=== PATIENT | female | born 1995 | race Caucasian/White ===

== ENCOUNTER 2019-04-13 12:47 | Inpatient (IN) | payer OTHER ==
[2019-04-13] VITALS (11 sets, daily range): BP systolic 108–168; BP diastolic 57–105; PULSE 60–86; TEMP 97.6–97.9
[~2019-04-13] VITALS: Ht 160 cm; Wt 59.1 kg
--- NOTE | 2019-04-13 13:00 | NUR ---
Patient to LDR2 via stretcher from emergency room. Patient came in via EMS after an unplanned home delivery. Patient states that she just found out she was 2 weeks ago and has not had care. Placenta is already delivered. Dr. Mcclendon on unit and called to patient room. NS infusing to left AC, pitocin started at 333 ml/hr. Patient feets placed in stirrups for exam by Dr. Mcclendon. Patient screams in pain through fundal massage and exam by Dr. Mcclendon. 1313 1 mg of stadol given IV for pain. Pain remains uncontrollable through exam. Dr. Mcclendon makes decision to continue exam and start repair in the operating room under IV sedation. JACQUIE Mcleod notified. Patient to OR via bed at 1323.
--- NOTE | 2019-04-13 13:45 | NUR ---
Patient to LDR2 via bed from OR. Recovery VS started.
[2019-04-13 15:21] LABS: MEAN CELL VOLUME 92 fl (80.0-100.0); MEAN CORPUSCULAR HEMOGLOBIN 31 pg (27.0-31.0); MEAN CORPUSCULAR HGB CONC 34 g/dl (33.0-37.0); MEAN PLATELET VOLUME 10.7 fl (7.4-10.4); PLATELET COUNT 201 K/mm3 (130-400); RED BLOOD COUNT 3.51 M/mm3 (4.10-5.30)
[2019-04-13 15:31] LABS: HEMATOCRIT 32.3 % (37.0-47.0)
[2019-04-13 16:09] LABS: HIV 1/2 Antibodies Non-Reactive; HIV-1p24 Antigen Non-Reactive
--- NOTE | 2019-04-13 16:11 | NUR ---
tool worker filed CPS report #[id number] due to admitted use of marijuana, concern that baby may have been born with illegal substances. Awaiting urine drug screen for patient. EMS reports residence of patient was very poor and had a strong smell of marijuana.
--- NOTE | 2019-04-13 16:18 | NUR ---
mud jack nozzle worker met with patient and father of the baby (Dorian Smith). Patient states she found out 2 weeks ago, at [facility], that she was . Patient states she stopped smoking marijuana when she found out she was and that her smoking habits were not daily. Patient states she stays with father of the baby, however, her permanent address is in [place], with her parents. Patient states they are trying to figure out a way to tell her parents and Dorian's parents (that live in [place]) that they just had a baby. Worker will await urine drug tests, meet with Dr Marie in the morning to discuss further plans. Will await call from [facility]. Worker collaborated with nursing regarding the above information.
[2019-04-13 16:23] LABS: COLLECTION METHOD CATHETER
[2019-04-13 16:32] LABS: ALBUMIN 2.6 gm/dL (3.5-5.0); BILIRUBIN,TOTAL 0.7 mg/dL (0.0-1.0); CALCIUM 8.6 mg/dL (8.4-10.2); CREATININE, serum 0.41 (0.52-1.25); TOTAL PROTEIN 4.9 gm/dL (6.4-8.2)
[2019-04-13 16:33] LABS: POTASSIUM 3.9 mmol/L (3.4-5.0)
[2019-04-13 16:39] LABS: BAND 7 % (0-10); LYMPHOCYTE 6 % (20.0-51.0); NEUTROPHILS 84 % (42.0-75.2)
[2019-04-13 16:40] LABS: PLATELET ESTIMATE NORMAL (NORMAL)
[2019-04-13 16:42] LABS: MUCOUS Present /lpf; PH 6 (5-8); SQUAMOUS EPITHELIAL None Seen /hpf; URINE APPEARANCE Clear; URINE BACTERIA None Seen /hpf; URINE BILIRUBIN Negative (NEGATIVE); URINE BLOOD 3+ (NEGATIVE); URINE COLOR Red; URINE GLUCOSE Negative (NEGATIVE); URINE KETONE 1+ (NEGATIVE); URINE LEUKOCYTE ESTERASE 1+ (NEGATIVE); URINE NITRATE Negative (NEGATIVE); URINE PROTEIN(semi-quant) 2+ (NEGATIVE); URINE RBC >50 /hpf; URINE UROBILINOGEN Negative (NEGATIVE)
[2019-04-13 16:54] LABS: TRICYCLIC ANTIDEPRESS URINE NEGATIVE
[2019-04-14 00:23] LABS: HEPATITIS B SURFACE ANTIGEN Negative (Negative)
[2019-04-14 03:16] VITALS: BP 128/69; PULSE 89; TEMP 98.3
[2019-04-14 08:19] VITALS: BP 135/78; PULSE 72; TEMP 98.3
--- NOTE | 2019-04-14 10:43 | NUR ---
clerical and administrative workers faxed positive drug screens for Amphetamines and marijuana to CPS. CPS worker, Sandra Brooks (c#[phone]/w#[phone]) plans to visit patient today. Worker collaborated with Dr Marie and made a referral to [facility] police regarding postive drug screen and poor home living conditions. Worker met with patient and father of the baby and provided resources for patient to reach out to for baby supplies and to schedule [facility] appointment. Emergency services provided an car seat, to patient, on 04/13/19. Father of the baby states their family provided clothing (which is in 2 gift bags in patient's room). Father of the baby states their family said they have baby beds to give them. Worker advised that CPS has been notified due to positive drug screens. Worker offered drug treatment and patient initially declined and then stated she would be open to treatment. Will await CPS visit and worker left message for regarding drug treatment referral. Worker collaborated with patient's nurse regarding the above information. Patient confirmed that they would be discharging, with baby, back to the [facility].
--- NOTE | 2019-04-14 10:46 | NUR ---
Initial visit attempt; Patient out of room, [employer] left card of congratulations and God's blessings for the of their daughter and information regarding the availability of spiritual care at [facility].
[2019-04-14 12:00] VITALS: BP 112/68; PULSE 68; TEMP 98.1
--- NOTE | 2019-04-14 12:44 | NUR ---
1230 NARE SWABS DONE AT THIS TIME FOR MRSA. ENCOURAGED PATIENT TO STAY IN ROOM UNTIL RESULTS COME BACK. VERBAL UNDERSTANDING NOTED.
[2019-04-14 16:15] VITALS: BP 138/88; PULSE 78; TEMP 97.8
[2019-04-14 19:00] VITALS: BP 140/99; PULSE 109; TEMP 98.8
[2019-04-15 09:10] VITALS: BP 127/76; PULSE 72; TEMP 98.6
[2019-04-15] MEDS ORDERED: IBU600 MG PO (09:45)
--- NOTE | 2019-04-15 11:17 | NUR ---
Sandra with [facility] states she plans to make a home visit with mother today. Sandra stated she has explored possibility of mother and child moving in with her parents and will also speak with grandparents about this feasibility. Sandra states they are awaiting results of drug screening explanation for amphetamines and have not fully made a decision on their course of action after results are confirmed.
--- NOTE | 2019-04-15 11:20 | NUR ---
acetone recovery worker met with Dr Marie regarding on going collaboration regarding safe planning for .
--- NOTE | 2019-04-15 14:25 | NUR ---
patient discharged and infant to border status. Patient denies questions or concerns. TDAP administered
[2019-04-15 14:40] LABS: RPR (VDRL) XXX
--- NOTE | 2019-04-16 11:24 | NUR ---
OLLIE student met with the patient and the patient's boyfriend to discuss living arrangements once they leave the hospital with baby and to address the positive drug test. The patient reports they will be staying at the boyfriends parents house this weekend then patient and baby will move to [place] to live with her parents. Patient had a positive drug test for Amphetamine (adderall) and patient reports she had this medication left over from an old prescription. Sandra from [facility] reports there will be a home visits today for both sets of grandparents and patient's address and there will be a drug treatment referral sent to [place]. Flores reports both sets of grandparents will be supportive. OLLIE student faxed positive test to Gerald at [facility]. OLLIE student collaborated above information with Dr. Marie and patient's nurse.
== END 2019-04-15 14:26 | disposition home or self-care (01) | DRG 769 ==
LOC: COL.ER 12:47 → OB 12:57 → LDR 12:57 → COL.ER 12:58 → OB 16:17
PROVIDERS: ADMIT Obstetrics & Gynecology
PROC: 0KQM0ZZ Repair Perineum Muscle, Open Approach (ICD-10-PCS; principal; 2019-04-13)
PROC: 0UQMXZZ Repair Vulva, External Approach (ICD-10-PCS; 2019-04-13)
DX: O71.4 Obstetric high vaginal laceration alone (principal); O99.325 Drug use complicating the puerperium; O98.83 Other maternal infectious and parasitic diseases complicating the puerperium; F31.9 Bipolar disorder, unspecified; O99.345 Other mental disorders complicating the puerperium; Z22.322 Carrier or suspected carrier of Methicillin resistant Staphylococcus aureus; Z23 Encounter for immunization
CPT/HCPCS: 87522; J0595; J2590; J2704; J3010